=== PATIENT | female | born 1985 | race Caucasian/White ===

== ENCOUNTER 2019-03-28 23:26 | Emergency (ER) | payer MEDICAID ==
[~2019-03-28] VITALS: Ht 170.2 cm; Wt 59.1 kg
[2019-03-28 23:33] VITALS: BP 130/80
--- NOTE | 2019-03-29 00:18 | NUR ---
Several attempts to room Pt.. [facility] staff who accompanied [email or web address] reports she is using bathroom.
[2019-03-29] MEDS ORDERED: CLOT15CR5 TOP (00:53)
[2019-03-29] MEDS ORDERED: NICO-630 TOP (01:10)
== END 2019-03-29 01:32 | disposition home or self-care (01) ==
LOC: ER 23:27
DX: B36.8 Other specified superficial mycoses (principal); F11.10 Opioid abuse, uncomplicated; F15.10 Other stimulant abuse, uncomplicated; F12.10 Cannabis abuse, uncomplicated; Z02.89 Encounter for other administrative examinations; Z79.899 Other long term (current) drug therapy
CPT/HCPCS: 99282